=== PATIENT | female | born 1950 | race Caucasian/White ===

== ENCOUNTER 2018-12-23 09:20 | Day surgery (SDC) | payer MEDICARE, OTHER ==
[~2018-12-23] VITALS: Ht 160 cm; Wt 61.7 kg
--- NOTE | ~2018-12-23 | OR ---
[facility] [address] [place], [place] [address] Draft DATE OF OPERATION: 12/23/2018 SURGEON: Carlos Eduardo De Santiago MD PREOPERATIVE DIAGNOSIS: Chronic ear infections. POSTOPERATIVE DIAGNOSIS: Chronic ear infections. PROCEDURE: Bilateral myringotomy and ventilation tube insertion with T tubes. ANESTHESIA: General LMA; Donovan ELLER. PREOPERATIVE HISTORY: Dylan is a 68-year-old lady with chronic middle ear effusions, hearing loss. She had Bird tubes placed 11 months ago. These have extruded. She has recurrent effusions, hearing loss, taken to the operating room for the above-mentioned procedure. OPERATIVE PROCEDURE AND FINDINGS: After informed consent, the patient was taken to the operating room, placed in supine position where general LMA anesthesia was induced. The patient and procedure were verified. The left ear was examined with the operating microscope. The previously placed Bird tube had extruded. The eardrum was dull, retracted. Anterior-inferior radial myringotomy was made. A scant middle ear effusion suctioned from the middle ear space. A T-tube placed in the myringotomy site. Ofloxacin ophthalmic drops applied to the ear canal, cotton ball to meatus. The right ear was inspected. The Bird tube was on the eardrum. This was removed. There was a small perforation at the site of the Bird tube. T-Tube was placed in this site, drops cotton ball. The patient tolerated procedure well, was awakened, extubated, transported to recovery room in good condition. No complications. BLOOD LOSS: Minimal. SPECIMEN: No specimen. PATIENT NAME: DYLAN AJ OPERATIVE REPORT DATE OF : 50 REPORT #: [id number] PHYSICIAN: CARLOS EDUARDO DE SANTIAGO MD PCP: RITU GARCIA REPORT IS CONFIDENTIAL AND NOT TO BE RELEASED WITHOUT AUTHORIZATION [address] [place] [address] Draft DRAINS: No drains. Carlos Eduardo De Santiago MD GC/TYSON /[id number] Copies: ~ PATIENT NAME: DYLAN AJ OPERATIVE REPORT DATE OF : 50 REPORT #: [id number] PHYSICIAN: CARLOS EDUARDO DE SANTIAGO MD PCP: RITU GARCIA REPORT IS CONFIDENTIAL AND NOT TO BE RELEASED WITHOUT AUTHORIZATION
[~2018-12-23 09:20] MED LIST: ADVIL200 MG PO; CALCIUM500 MG PO; CYTOMEL5 MCG PO; DAILY MULTIPLE1 EACH PO; FISH OIL 1,0001 EAC3 PO; FLAX OIL1000 MG PO; NORCO 5-325 TA1 EACH PO; PRILOSEC OTC20 MG PO; RED YEAST RICE600 M1 PO; SOY ISOFLAVONES40 MG PO; SYNTHROID112 MCG PO; TURMERIC500 M2 PO; ULTRAM50 MG PO; VITAMIN C WIT1000 MG PO; ZINC50 MG PO
--- NOTE | 2018-12-23 10:43 | NUR ---
12/23/18 Arun3 Irma Palomo 1037 PATIENT ARRIVES TO PACU UNRESPONSIVE TO PAIN. RESP EVEN AND UNLABORED, MASK AT 6 LITERS.
== END 2018-12-23 12:30 | disposition home or self-care (01) ==
LOC: OPS 09:20 → DS 09:24 → OPS 11:15
PROVIDERS: Otolaryngology
PROC: 099500Z Drainage of Right Middle Ear with Drainage Device, Open Approach (ICD-10-PCS; 2018-12-23)
PROC: 099600Z Drainage of Left Middle Ear with Drainage Device, Open Approach (ICD-10-PCS; principal; 2018-12-23 11:15)
DX: T85.628A Displacement of other specified internal prosthetic devices, implants and grafts, initial encounter (principal); H66.93 Otitis media, unspecified, bilateral; H65.493 Other chronic nonsuppurative otitis media, bilateral; E03.9 Hypothyroidism, unspecified; K21.9 Gastro-esophageal reflux disease without esophagitis; F41.9 Anxiety disorder, unspecified; Z79.1 Long term (current) use of non-steroidal anti-inflammatories (NSAID); Z79.899 Other long term (current) drug therapy
CPT/HCPCS: J1100; J2250; J2405; J2704; J7120

== ENCOUNTER 2023-03-19 08:20 | Day surgery (SDC) | payer MEDICARE, OTHER ==
[~2023-03-19] VITALS: Ht 160 cm; Wt 63.6 kg
[2023-03-19 08:35] VITALS: BP 115/58
[2023-03-19 10:23] VITALS: BP 105/91
--- NOTE | 2023-03-19 10:29 | NUR ---
PATIENT BACK IN DAY SURGERY ROOM FROM PACU. DENIES PAIN. SMALL AMOUNT OF RED DRAINAGE FROM SURGICAL SITE. IV SITE WNL. SCDs ON. TOLERATING WATER. CALL LIGHT WITHIN REACH. FRIEND AT BEDSIDE.
--- NOTE | 2023-03-19 10:42 | NUR ---
03/19/23 1042 HayesRosy LE 0935 PT ARRIVED IN PACU CRYING AND WANTING TO HOLD HANDS. SURGERY RN AND APPIAN DEVELOPER HOLDING PT'S HAND PER REQUEST. 1000 ORALLY SUCTIONING PT AND HOLDING HER HAND. 1005 SUCTION GIVEN TO PT TO ORALLY SUCTION WHEN NEEDED. NO C/O'S PAIN. STILL OCCASIONALLY CRYING. STATES "I'M JUST SO HAPPY I CAN BREATH OUT OF MY NOSE AGAIN." 1015 TAKING SIPS OF WATER. 1022 TO DS. REPORT GIVEN TO RN. FRIEND AT BEDSIDE.
--- NOTE | 2023-03-25 17:48 | PATH ---
[facility] [address] [facility] [place] [address] Signed SPECIMEN(S): A NASOPHARYNGEAL LESION SPECIMEN SOURCE: A. NASOPHARYNGEAL LESION CLINICAL HISTORY: Nasopharyngeal mass. FINAL PATHOLOGIC DIAGNOSIS: Nasopharyngeal lesion: - Polypoid respiratory-type mucosa with lymphofollicular stromal tissue. - See Comment. COMMENT: The histologic features are compatible with lymphoepithelial (tonsillar, adenoid, etc.) tissue with reactive features. As part of the [facility] Apprentice Cosmetologist Program, the case has been reviewed by a second pathologist. JVR:CINDI:hortensia MICROSCOPIC EXAMINATION: Histologic sections of all submitted blocks are examined by light microscopy. These findings, together with the gross examination, support the pathologic diagnosis. Immunostains are performed with appropriate controls on block A1 and show the following: - Cytokeratin AE1/AAE3: Negative for occult carcinoma. - CD3: Positive in scattered small lymphocytes. - C20: Positive in scattered lymphoid nodules. JVR:hortensia GROSS DESCRIPTION: The specimen, labeled and designated "Mildred nasopharyngeal lesion," is received in formalin and consists of 2 pieces of pink-velasquez, soft tissue that aggregate measure 0.8 x 0.7 x 0.2 cm. Entirely submitted in (A1). JS (under the direct supervision of a pathologist) The Gross Description was prepared using a voice recognition system. The report was reviewed for accuracy; however, sound-alike word errors, addition and/or deletions may occur. If there is any question about this report, please contact Client Services. PATIENT NAME: DYLAN AJ PATHOLOGY DATE OF : 50 REPORT #: [id number] PHYSICIAN: OANH LOPEZ PCP: LUKE SAAVEDRA DR REPORT IS CONFIDENTIAL AND NOT TO BE RELEASED WITHOUT AUTHORIZATION [facility] [address] [place], [place] [address] Signed ADDITIONAL NOTES: Immunohistochemical and/or in situ hybridization studies were performed on this case with the appropriate positive controls that react as expected. This test was developed and its performance characteristics determined by [facility]. It has not been cleared or approved by the U.S. Food and Drug Administration. The FDA has determined that such clearance or approval is not necessary. This test is used for clinical purposes. It should not be regarded as investigational or for research. [facility] is certified under the Clinical Laboratory Improvement Amendments of 1988 (CLIA) as qualified to perform high complexity clinical laboratory testing. This assay has not been validated for specimens that have been decalcified. PERFORMING LABORATORY: Technical component was performed by [facility], [address] [place] [id number] (CLIA# [id number]). Professional interpretation was performed by [facility], [address] [place] [id number] (CLIA#: [id number]). Diagnostician: Pradeep Robb MD Pathologist Electronically Signed 03/25/2023 Copies: ~ PATIENT NAME: DYLAN AJ PATHOLOGY DATE OF : 50 REPORT #: [id number] PHYSICIAN: OANH LOPEZ PCP: LUKE SAAVEDRA DR REPORT IS CONFIDENTIAL AND NOT TO BE RELEASED WITHOUT AUTHORIZATION
--- NOTE | 2023-03-26 11:03 | OR ---
[facility] [address] [place], [place] [address] Signed DATE OF OPERATION: 03/19/2023 SURGEON: Carlos Eduardo Marquez MD PREOPERATIVE DIAGNOSIS: Nasopharyngeal lesion. POSTOPERATIVE DIAGNOSIS: Nasopharyngeal lesion. PROCEDURE: Exam of the nasopharynx under anesthesia with biopsy of nasopharyngeal lesion. ANESTHESIA: General orotracheal, CERTIFIED HEALTH EDUCATION SPECIALIST, Jaswinder. PREOPERATIVE HISTORY: Dylan is a 72-year-old lady with a nasopharyngeal lesion. This was excised several years ago and has recurred. Appears to be a cystic lesion. She is taken to the operating for the above-mentioned procedures. OPERATIVE PROCEDURE AND FINDINGS: After informed consent, the patient was taken to the operating room, placed in the supine position where general orotracheal anesthesia was induced. The patient and procedure were verified. The patient was repositioned.. McIvor mouth gag placed into suspension. A red rubber catheter passed through the nostril for elevation of the soft palate. Mirror exam of the nasopharynx showed some relatively unremarkable granular tissue in the nasopharynx. The area was not enlarged protruding into the airway. The granular tissue was biopsied transnasally with a Blaire. Several specimens were taken. There did not appear to be any fluctuance or cystic component probing with a suction tip. The specimen was obtained. Moderate bleeding stopped afterwards. Nasopharynx was suctioned clear of blood and secretions. Catheter and mouth gag were removed. The patient was awakened, extubated, and transported to the recovery room in good condition. No complications. BLOOD LOSS: Minimal. SPECIMEN: To pathology. Electronically Signed By: CARLOS EDUARDO MARQUEZ MD 03/26/23 1103 PATIENT NAME: DYLAN AJ OPERATIVE REPORT DATE OF : 50 REPORT #: [id number] PHYSICIAN: CARLOS EDUARDO MARQUEZ MD PCP: LUKE SAAVEDRA DR REPORT IS CONFIDENTIAL AND NOT TO BE RELEASED WITHOUT AUTHORIZATION [address] [place], [place] [address] Signed DRAINS: No drains. Carlos Eduardo Marquez MD /MODL /[id number] Copies: ~ Electronically Signed By: CARLOS EDUARDO MARQUEZ MD 03/26/23 1103 PATIENT NAME: DYLAN AJ OPERATIVE REPORT DATE OF : 50 REPORT #: [id number] PHYSICIAN: CARLOS EDUARDO MARQUEZ MD PCP: LUKE SAAVEDRA DR REPORT IS CONFIDENTIAL AND NOT TO BE RELEASED WITHOUT AUTHORIZATION
== END 2023-03-19 11:25 | disposition home or self-care (01) ==
LOC: OPS 08:20 → DS 08:21 → OPS 09:00
PROVIDERS: ATTEND Otolaryngology
PROC: 09B Ear, Nose, Sinus, Excision (ICD-10-PCS; principal; 2023-03-19 09:00)
DX: J34.89 Other specified disorders of nose and nasal sinuses (principal); J33.0 Polyp of nasal cavity; E03.9 Hypothyroidism, unspecified
CPT/HCPCS: 00170; 88305; 88341; 88342; A9270; J0131; J1100; J2001; J2405; J2704; J3010; J3490; J7121